=== PATIENT | female | born 2000 ===

== ENCOUNTER 2024-06-20 07:26 | Inpatient (IN) | payer BC ==
[2024-06-20] MEDS ORDERED: Methylergonovine 0.2 MG/1 ML Amp IM PRN (07:38)
[2024-06-20] MEDS ORDERED: Lidocaine 1% 50 ML MDV INJECT PRN (07:38)
[2024-06-20] MEDS ORDERED: Sodium Chloride 0.9% 10 ML Syringe FLUSH PRN (07:38)
[2024-06-20] MEDS ORDERED: Sodium Chloride 0.9% 20 ML SDV IV PRN (07:38)
[2024-06-20] MEDS ORDERED: Carboprost Tromethamine 250 MCG/1 mL Vial IM PRN (07:38)
[2024-06-20] MEDS ORDERED: Sodium Chloride 0.9% 2.5 ML Syringe FLUSH PRN (07:38)
[2024-06-20] MEDS ORDERED: Tranexamic Acid in NACL,ISO-OS 1,000 MG in Premix Bag 1 BAG IV PRN (07:38)
[2024-06-20] MEDS ORDERED: Misoprostol 200 MCG Tab PO PRN (07:38)
[2024-06-20] MEDS ORDERED: Ondansetron 4 MG/2 ML SDV IVPUSH PRN (07:38)
[2024-06-20] MEDS ORDERED: Misoprostol 200 MCG Tab RECTAL PRN (07:38)
[2024-06-20] MEDS ORDERED: Butorphanol 2 MG/ML SDV IVPUSH PRN (07:38)
[2024-06-20] MEDS ORDERED: Water For Irrigation,Sterile 1,000 ML Container IRR PRN (07:38)
[2024-06-20 07:55] LABS: HEMOGLOBIN 13.5 g/dL (12.0-16.0); MEAN CORPUSCULAR HEMOGLOBIN 29.9 pg (28.0-32.0); MEAN CORPUSCULAR HGB CONC 35.5 g/dL (32.0-36.0); MEAN CORPUSCULAR VOLUME 84.1 fL (83.0-99.0); MEAN PLATELET VOLUME 11.2 fL (9.4-12.3); PLATELET COUNT,PLT 207 K/uL (150-400); RED BLOOD CELL COUNT 4.52 M/uL (4.10-5.30); WHITE BLOOD CELL COUNT,WBC 10.04 K/uL (3.9-11.3)
[2024-06-20] MEDS: Ampicillin 2 GM in Sodium Chloride 0.9% 100 ML IV ONE (07:57)
[2024-06-20] MEDS: Lactated Ringers 1,000 ML IV SCH (07:58)
[2024-06-20] MEDS ORDERED: ePHEDrine 50 MG/ML SDV IVPUSH PRN (09:35)
[2024-06-20] MEDS ORDERED: Phenylephrine HCl In 0.9% NaCl 1 MG/10 ML Syringe IVPUSH PRN (09:35)
[2024-06-20] MEDS ORDERED: Ropivacaine HCl/PF 400 MG in Premix Bag 1 BAG EPIDUR SCH (09:45)
[2024-06-20] MEDS ORDERED: dexmedeTOMIDine HCl 200 MCG/2 ML SDV EPIDUR SCH (09:45)
[2024-06-20] MEDS ORDERED: Butorphanol 2 MG/ML SDV IVPUSH ONE (10:44)
[2024-06-20] MEDS: Butorphanol 2 MG/ML SDV IVPUSH PRN (10:58)
[2024-06-20] MEDS: Ampicillin 1 GM in Sodium Chloride 0.9% 50 ML IV SCH (11:38)
[2024-06-20] MEDS: Oxytocin/0.9 % Sodium Chloride 30 UNIT/500 ML BAG IV SCH (14:48)
[2024-06-20] MEDS: Lidocaine 1% 50 ML MDV ONE (14:48)
[2024-06-20] MEDS ORDERED: Ibuprofen 800 MG Tab PO PRN (17:02)
[2024-06-20] MEDS: Witch Hazel Medicated Pads 40/Jar TOP PRN (17:17)
[2024-06-20] MEDS: Lanolin 100% Cream 7 GM Tube TOP PRN (17:17)
[2024-06-20] MEDS: Benzocaine/Menthol 20%-0.5% Spray 78 GM Cannister TOP PRN (17:17)
[2024-06-21] MEDS: Acetaminophen 500 MG Tab PO PRN (05:44)
[2024-06-21] MEDS: Docusate Sodium 100 MG Cap PO PRN (05:45)
[2024-06-21 06:10] LABS: HEMATOCRIT 32.9 % (37.0-47.0); HEMOGLOBIN 11.4 g/dL (12.0-16.0)
== END 2024-06-21 20:06 | disposition home or self-care (01) | DRG 560 ==
LOC: MW.OBCHECK 07:26 → MW.OB 07:26 → MW.OBCHECK 08:00 → MW.OB 08:00 → OBSVTOIN 14:25 → MW.OB 18:11
PROVIDERS: ADMIT Obstetrics & Gynecology Obstetrics; ATTEND Obstetrics & Gynecology Obstetrics
PROC: 10E0XZZ Delivery of Products of Conception, External Approach (ICD-10-PCS; principal; 2024-06-20)
PROC: 0KQM0ZZ Repair Perineum Muscle, Open Approach (ICD-10-PCS; 2024-06-20)
DX: O98.82 Other maternal infectious and parasitic diseases complicating childbirth (principal); Z37.0 Single live birth; B95.1 Streptococcus, group B, as the cause of diseases classified elsewhere; O77.0 Labor and delivery complicated by meconium in amniotic fluid; O70.1 Second degree perineal laceration during delivery; Z3A.40 40 weeks gestation of pregnancy
CPT/HCPCS: 36415; 59025; 85014; 85018; 85027; 86592; 86850; 86900; 86901; A9270-GY; J0290; J0595; J2003; J2590; J3490; J7120